=== PATIENT | male | born 1955 | race Caucasian/White ===

== ENCOUNTER → 2024-02-25 | Outpatient (CLI) | payer MEDICARE, BC, SELFPAY ==
[2024-02-25 13:35] LABS: Collection Type, Urine Clean Catch
[2024-02-25 15:10] LABS: Bilirubin,Urine Negative (Negative); Blood,Urine Negative (Negative); Clarity,Urine Clear (Clear/Hazy); Color,Urine Yellow (Lt Yel-Yel); Culture Indicated,Urine Not Indicated; Glucose, Urine Negative (Negative); Ketones,Urine Negative (Negative); Leukocyte Esterase,Urine Negative (Negative); Nitrite,Urine Negative (Negative); Protein,Urine Negative (Neg - Trace); RBC,Urine 4 /hpf (0-3); Specific Gravity,Urine 1.014 (1.001-1.035); Squamous Epithelial Cell,Urine < 1 /hpf (0-5); Urobilinogen,Urine Negative mg/dL (0.0-1.0); WBC,Urine 2 /hpf (0-5)
== END | disposition home or self-care (01) ==
PROVIDERS: PCP Internal Medicine; Referring Provider Internal Medicine; Visit Provider Internal Medicine
DX: N39.0 Urinary tract infection, site not specified (principal)
CPT/HCPCS: 81001

== ENCOUNTER 2024-04-28 13:46 | Emergency (ER) | payer MEDICARE, BC, SELFPAY ==
[2024-04-28 13:50] VITALS: BMI 21.9
[2024-04-28 13:57] VITALS: BP 112/75; PULSE 58; RESP 18; TEMP 36.9; O2SAT 98
--- NOTE | 2024-04-28 14:08 | PC.NURSE ---
PER DR OHARA PT IS NOT A STROKE ALERT AT THIS TIME
--- NOTE | 2024-04-28 14:25 | PD.EDDIZZY ---
ED Dizzyness RME/HPI General Chief Complaint: Recheck/Abnormal Lab/Rx Stated Complaint: Referred by Provider: RO Stroke Time Seen by Provider: 04/28/24 14:36 Arrival date/time: 04/28/24 13:46 RME / HPI RME / HPI Narrative: Patient is a 69-year-old male with past medical history of polycystic kidney disease s/p left nephrectomy, BPH, anxiety, severe depression, and bipolar disorder who presents to the ED on 04/28/2024 due to feeling off-balance for 2 days. Patient states that the symptoms have been worst in the morning when he first gets up from bed. He reports he first felt this way the night before last night, he got up to use the bathroom to urinate as he sometimes does and felt off balance and the same feeling occurred when he got up from bed in the morning. Patient denies feeling of vertigo or like the room is spinning. Denies falls. He went to [facility] today and was recommended to come to the ED to rule out a stroke. Patient denies any focal weakness, sensory loss, changes in vision, or headache. Patient reports that 2 days ago he was very active and had a long day involving moving furniture with his and daughter. Patient has a history of COVID one year ago after which he became weak to the point he went to acute rehab at [facility]. Related Data Home Medications ?Medication ?Instructions ?Recorded ?Confirmed dicyclomine 10 mg capsule 10 mg PO DAILY 06/18/21 12/14/23 atenolol 25 mg tablet 25 mg PO QDAY 07/07/23 12/14/23 gabapentin 600 mg tablet 600 mg PO BID 07/07/23 12/14/23 lorazepam 0.5 mg tablet 0.5 mg PO BID 07/07/23 12/14/23 [id number] acid-vit 1 tab PO QDAY 07/07/23 12/14/23 K-lycop 400 mcg-20 mcg-370 mcg tablet (Men's 50 Plus Multivitamin) tamsulosin 0.4 mg capsule (Flomax) 0.4 mg PO QHS 07/07/23 12/14/23 5-hydroxytryptophan (5-HTP) 100 mg 200 mg PO HS 09/06/23 12/14/23 capsule (5-HTP) cariprazine 3 mg capsule (Vraylar) 3 mg PO HS 09/06/23 12/14/23 coQ10 (ubiquinol) 200 mg capsule 200 mg PO Q12H 09/06/23 12/14/23 MELINA 100 mg-theanine 100 2 cap PO QDAY 12/14/23 12/14/23 mg-ashwagandha extract 225 mg capsule (MELINA Soothe) alpha lipoic acid 50 mg tablet 100 mg PO QDAY 12/14/23 12/14/23 benfotiamine 150 mg capsule 150 mg PO QDAY 12/14/23 12/14/23 dextromethorphan IR 45 PO 12/14/23 12/14/23 mg-bupropion ER 105 mg biphasic tablet (Auvelity) magnesium citrate 100 mg tablet 55 mg PO TID 12/14/23 12/14/23 mirabegron 50 mg tablet,extended 50 mg PO QDAY 12/14/23 12/14/23 release 24 hr (Myrbetriq) omega 3-dha 200 mg-epa 300 mg-fish 2 cap PO QDAY 12/14/23 12/14/23 oil 1,000 mg capsule (Ultra Van Orin-3) Allergies Allergy/AdvReac Type Severity Reaction Status Date / Time Penicillins Allergy Mild HIVES Verified 12/13/23 21:11 Review of Systems Review of Systems Systems Reviewed: All systems reviewed, normal except as documented Past Medical History Past Medical History NEUROLOGIC: Negative Neurological Disorders or Seizures CARDIAC: Positive Cardiac Disorders, Cellulitis, Hypertension and Varicose Veins; Negative Congestive Heart Failure, Edema or Deep Vein Thrombosis RESPIRATORY: Positive Sleep Apnea; Negative Chronic Obstructive Pulmonary Disease (COPD), Asthma, Pneumonia, Tuberculosis or Pulmonary Embolism GASTROINTESTINAL: Positive Gastrointestinal Disorders, Colitis and Hemorrhoids; Negative Hepatitis, Gall Bladder Disease, Gastrointestinal Bleed or Gastroesophageal Reflux Disease GENITOURINARY: Positive Genitourinary Disorders, Renal Disease, Polycystic Kidney Disease, Inguinal Hernia and Benign Prostatic Hyperplasia; Negative Dialysis MUSCULOSKELETAL: Positive Musculoskeletal Disorders, Arthritis, Carpal Tunnel Syndrome and Fractures ENT: Negative Cataracts or Glaucoma ENDOCRINE: Negative Endocrine Disorders, Diabetes Mellitus Type 1 or Diabetes Mellitus Type 2 HEMATOLOGIC: Negative Blood Disorders, Anemia, Sickle Cell Disease or Clotting Problems PSYCHO/SOCIAL: Positive Depression and Anxiety OTHER HISTORY: Positive Hospitalization, Chicken Pox, Measles, Mumps and Cancer; Negative Autoimmune Disease, Shingles, Falls, Blood Transfusions, Blood Transfusion Reaction, Anesthesia Reactions, Organ Transplant, Chemotherapy, Radiation Therapy or MRSA Family History FAMILY HISTORY: Positive Family Psychiatric Problems, Family Respiratory Disorders, Family Cardiac Disorders, Family Gastrointestinal Problems, Family Cancer and Family Surgery; Negative Family Anesthesia Reaction Surgical History SURGICAL: Positive Endocrine Surgery, Nose Surgery, Oral Surgery, Tonsillectomy, Adenoidectomy, Nephrectomy, Open Reduction Internal Fixation and Vasectomy; Negative Cardiac Surgery, Pacemaker, Joint Replacement, Neurologic Surgery or Organ Transplant Social History SMOKING STATUS: Never smoker SECOND HAND EXPOSURE: No ED Exam Narrative Physical exam: Physical Exam General: Awake and in no acute distress. Conversational and non-toxic appearing. Flat affect. HEENT: Normocephalic, atraumatic, mucous membranes moist. Droopy eyelids symmetrical bilaterally. Heart: Regular rate and rhythm, no murmurs. Lungs: Clear to auscultation with no wheezing or crackles. Abdomen: Soft, nondistended, nontender, positive bowel sounds. ?No guarding or rebound tenderness. Neurologic: Alert and oriented x3, no gross neurological deficit, and patient able to move all 4 extremities. Extremities: No edema. Skin: No rash or ecchymoses. Course Quality Measures none Orders Category Date Time Status CBC Stat Lab 04/28/24 15:09 Completed CMP [Comprehensive Metabolic Panel] Stat Lab 04/28/24 15:09 Completed Vital Signs Vital signs: Vital Signs Temperature 98.5 F 04/28/24 13:57 Pulse Rate 58 L 04/28/24 13:57 Respiratory Rate 18 04/28/24 13:57 Blood Pressure 112/75 04/28/24 13:57 Pulse Oximetry (%) 98 04/28/24 13:57 Oxygen Delivery Method Room Air 04/28/24 13:57 Dizziness MDM Narrative MDM Narrative:: Patient presents with 2 days of off balance symptoms, denies other symptoms, denies falling. Discharge Plan Plan Patient Disposition: HOME (Self Care) Patient condition on transfer: Stable Prescriptions/Referrals Prescriptions/Med Rec: No Action tamsulosin [Flomax] 0.4 mg capsule 0.4 mg PO QHS Men's 50 Plus Multivitamin 400-20-370 mcg tablet 1 tab PO QDAY lorazepam 0.5 mg tablet 0.5 mg PO BID atenolol 25 mg tablet 25 mg PO QDAY gabapentin 600 mg tablet 600 mg PO BID dicyclomine 10 mg capsule 10 mg PO DAILY 5-hydroxytryptophan (5-HTP) [5-HTP] 100 mg Capsule 200 mg PO HS Vraylar 3 mg Capsule 3 mg PO HS coQ10 (ubiquinol) 200 mg Capsule 200 mg PO Q12H alpha lipoic acid 50 mg Tablet 100 mg PO QDAY mirabegron [Myrbetriq] 50 mg Tablet Extended Release 24 Hr 50 mg PO QDAY magnesium citrate 100 mg Tablet 55 mg PO TID benfotiamine 150 mg Capsule 150 mg PO QDAY omega 6-sfc-ozi-fish oil [Ultra Van Orin-3] 200-300-1,000 mg Capsule 2 cap PO QDAY MELINA Soothe 100-100-225 mg Capsule 2 cap PO QDAY Auvelity 45-105 mg tablet, IR and ER, biphasic PO Referrals: Mary Lou Gautam MD [Primary Care Provider] - In 1 week Problem List Clinical Impression: Dizziness Patient/Caregiver Discharge Instructions Education Materials: Dizziness Balance Probs Fainting, Orthostatic Hypotension, ED Dizziness, Uncertain Cause Additional Instructions: Please ensure plenty of fluid intake, try to take about 2 liters of fluid per day. Get plenty of rest over the next few days. Try to get up slowly from laying to sitting and from sitting to standing. If you feel unsteady ensure that you use the assistance of a walker or cane. Return to the ED if you feel sudden weakness, inability to walk, unrelenting dizziness, inability to speak, changes to sensation, or facial droop. Print Language: [place] Stand Alone Forms: Christy Award Info., Patient Portal Info Letter
[2024-04-28 14:41] VITALS: BP 137/83; PULSE 77; RESP 16; TEMP 36.5; O2SAT 98
[2024-04-28 15:27] LABS: Basophils % (Auto) 0 % (0-2.5); Eosinophils # (Auto) 0.2 Thou/mm3 (0.0-0.5); Eosinophils % (Auto) 2 % (0-10); Hematocrit 41.5 % (41.0-53.0); Immature Granulocytes % (Auto) 0 % (0-0); Immature Granulocytes Auto 0.02 Thou/mm3 (0.00-0.00); Lymphocytes % (Auto) 30 % (10-50); Mean Corpuscular HGB Conc 33.7 g/dl (31.0-37.0); Mean Corpuscular Hemoglobin 31.5 pg (25.0-35.0); Mean Corpuscular Volume 94 fL (80-100); Monocytes # (Auto) 0.8 Thou/mm3 (0.0-0.8); Monocytes % (Auto) 12 % (0-12); Neutrophils # (Auto) 3.6 Thou/mm3 (1.8-7.7); Neutrophils % (Auto) 55 % (37-80); Nucleated Red Blood Cell % 0 /100 WBC (0); Platelet Count 129 Thou/mm3 (140-440); RDW Standard Deviation 42.9 fL (35.1-43.9); Red Blood Count 4.44 Miln/mm3 (4.50-5.90); White Blood Count 6.7 Thou/mm3 (3.8-10.6)
[2024-04-28 15:42] LABS: Alanine Aminotransferase 23 U/L (10-49); Albumin, Serum 3.9 gm/dL (3.4-4.8); Albumin/Globulin Ratio 1.7 (1.2-2.2); Alkaline Phosphatase 66 U/L (46-116); Anion Gap 8 (7-16); Aspartate Amino Transferase 25 U/L (0-34); BUN/Creatinine Ratio 15 Ratio (12-20); Bilirubin,Total 0.6 mg/dL (0.3-1.2); Blood Urea Nitrogen 20 mg/dL (9-23); Calcium 9.5 mg/dL (8.3-10.6); Calcium (Corrected) 9.6 mg/dL (8.5-10.1); Carbon Dioxide 30.5 mMol/L (20.0-31.0); Chloride 104 mMol/L (98-107); Creatinine (Component) 1.3 mg/dL (0.6-1.3); Estimated Creatinine Clearance 62.8 mL/min (>60); Globulin 2.3 gm/dL (2.3-3.5); Glucose 95 mg/dL (74-106); Osmolality,Calculated 285 (275-295); Potassium 4.6 mMol/L (3.4-5.1); Sodium 142 mMol/L (136-145); Total Protein 6.2 gm/dL (5.7-8.2); eGFR 60 See Note
[2024-04-28 16:12] VITALS: BP 139/77; PULSE 75; RESP 15; TEMP 37; O2SAT 98
== END 2024-04-28 18:00 | disposition home or self-care (01) ==
PROVIDERS: Student in an Organized Health Care Education/Training Program; Emergency Provider Emergency Medicine; PCP Internal Medicine
DX: R42 Dizziness and giddiness (principal)
CPT/HCPCS: 36415; 80053; 85025; 99283